=== PATIENT | male | born 1950 | race Caucasian/White ===

== ENCOUNTER 2018-02-25 09:27 | Emergency (ER) | payer BC ==
[2018-02-25] MEDS ORDERED: Oxymetazoline 0.05% Nasal Spray 15 ML Bottle NAS ONE (10:47)
--- NOTE | 2018-02-25 11:15 | EDM.PDOC ---
ED HPI GENERAL MEDICAL PROBLEM - General Chief Complaint: ENT Problem Stated Complaint: NOSE BLEED FOR 3 DAYS Time Seen by Provider: 02/25/18 11:12 Source of Information: Reports: Patient History Limitations: Reports: No Limitations - History of Present Illness INITIAL COMMENTS - FREE TEXT/NARRATIVE: pt arrived stating he has had some bleeding from his left nostril. He is not actively bleeding at this time. He does have a lot of purulent mucous in the left nare area. This has been coming out for the past 2 dys. Onset: Gradual, Other ( last 23 days. ) Duration: Day(s): Location: Reports: Face, Chest Associated Symptoms: Reports: Other (nose bleed. ) - Related Data Allergies Allergy/AdvReac Type Severity Reaction Status Date / Time No Known Allergies Allergy Verified 02/25/18 10:28 Home Meds: Home Meds NK [No Known Home Meds] 02/25/18 [History] Past Medical History HEENT History: Reports: Cataract Musculoskeletal History: Reports: Fracture, RA - Past Surgical History HEENT Surgical History: Reports: Cataract Surgery, Oral Surgery Musculoskeletal Surgical History: Reports: Arthroscopic Knee Social & Family History - Tobacco Use Smoking Status *Q: Current Every Day Smoker Years of Tobacco use: 38 Packs/Tins Daily: 1.5 - Caffeine Use Caffeine Use: Reports: Coffee - Recreational Drug Use Recreational Drug Use: No ED ROS ENT - Review of Systems Review Of Systems: See Below Constitutional: Reports: No Symptoms HEENT: Reports: Nosebleed, Sinus Problem Respiratory: Reports: Cough Cardiovascular: Reports: No Symptoms Endocrine: Reports: No Symptoms GI/Abdominal: Reports: No Symptoms : Reports: No Symptoms ED EXAM, ENT - Physical Exam Exam: See Below Text/Narrative:: pt arrived with a history of a nosebleed . He is not actively bleeding at this time. He dioes not have a fever. Exam Limited By: No Limitations General Appearance: Alert, No Apparent Distress Ears: Normal TMs Nose: Other ( He has alot of purulent drainage conming from both nares. ) Mouth/Throat: Normal Inspection Head: Atraumatic Neck: Normal Inspection Respiratory/Chest: No Respiratory Distress Cardiovascular: Regular Rate, Rhythm GI/Abdominal: Soft Course - Vital Signs Last Recorded V/S: Last Vital Signs Temp 35.6 C 02/25/18 10:26 Pulse 76 02/25/18 10:26 Resp 16 02/25/18 10:26 BP 137/84 02/25/18 10:26 Pulse Ox 97 02/25/18 10:26 - Orders/Labs/Meds Labs: Laboratory Tests 02/25/18 Range/Units 10:48 WBC 10.5 (4.5-11.0) K/uL RBC 4.65 (4.30-5.90) M/uL Hgb 14.8 (12.0-15.0) g/dL Hct 42.8 (40.0-54.0) % MCV 92 (80-98) fL MCH 32 H (27-31) pg MCHC 35 (32-36) % Plt Count 378 (150-400) K/uL Neut % (Auto) 69 H (36-66) % Lymph % (Auto) 19 L (24-44) % [place] % (Auto) 10 H (2-6) % Eos % (Auto) 1 L (2-4) % Baso % (Auto) 1 (0-1) % Meds: Medications Discontinued Medications Generic Name Dose Route Start Last Admin Trade Name Shyann PRN Reason Stop Dose Admin Oxymetazoline HCl 1 ml 02/25/18 10:47 02/25/18 10:55 Afrin Original 0.05% Nasal [place] ANATOLIY 02/25/18 10:48 4 spray ONETIME ONE Administration - Re-Assessments/Exams Free Text/Narrative Re-Assessment/Exam: 02/25/18 11:22 left nare was sprayed with afrin and there is no further bleeding. They isela heat with wood heat and a cool mist humidifier should be used at his bedside. Departure - Departure Time of Disposition: 11:23 Disposition: Home, Self-Care 01 Condition: Fair Clinical Impression: Sinusitis, Nosebleed - Discharge Information Referrals: Simone Aguilar MD [Primary Care Provider] - Forms: ED Department Discharge Care Plan Goals: spray left nare with afrin three times daily for the next 3-4 days and then stop it, amoxicillin 500mg tid for 10 days, cool mist humidifier at the bedside.
== END 2018-02-25 11:36 | disposition home or self-care (01) ==
LOC: JP.ED 09:27
DX: R04.0 Epistaxis (principal); J32.9 Chronic sinusitis, unspecified; M06.9 Rheumatoid arthritis, unspecified; F17.210 Nicotine dependence, cigarettes, uncomplicated
CPT/HCPCS: 36415; 85025; 99284; A9270